=== PATIENT | female | born 1980 | race Caucasian/White ===

== ENCOUNTER → 2018-06-23 | Outpatient (CLI) | payer BC ==
--- NOTE | 2018-06-23 11:24 | MM ---
Reason for exam: screening (asymptomatic). Baseline mammogram. History: Patient is nulliparous. Family history of breast cancer in maternal grandmother and breast cancer in sister at age 44. Taking hormonal contraceptives for 18 years. Physical Findings: Nurse did not find any significant physical abnormalities on exam. MG 3D Screening Mammo W/Cad Bilateral CC and MLO view(s) were taken. The breast tissue is heterogeneously dense. This may lower the sensitivity of mammography. No suspicious abnormality. These results were verbally communicated with the patient and result sheet given to the patient on 06/23/18. ASSESSMENT: Negative, BI-RAD 1 RECOMMENDATION: Routine screening mammogram of both breasts in 1 year.
== END | disposition home or self-care (01) ==
LOC: RADMAMWWP 08:07
PROVIDERS: ATTEND Obstetrics & Gynecology
DX: Z12.31 Encounter for screening mammogram for malignant neoplasm of breast (principal)
CPT/HCPCS: 77063; 77067

== ENCOUNTER → 2019-07-12 | Outpatient (CLI) | payer BC ==
--- NOTE | 2019-07-12 12:13 | XR ---
EXAMINATION TYPE: XR hand complete bilateral DATE OF EXAM: 07/12/2019 CLINICAL HISTORY: Bilateral hand pain for months with no known injury TECHNIQUE: Frontal, lateral and oblique images of the bilateral hands were obtained. COMPARISON: None. FINDINGS: There is no acute fracture/dislocation evident in either hand. The joint spaces in the parisa ateral hands appear within normal limits. The overlying soft tissue appears unremarkable. Very minim al negative ulnar variance noted on the right. IMPRESSION: No acute fracture or dislocation in either hand nor significant radiographic sequela of a rthropathy at this time.
== END | disposition home or self-care (01) ==
LOC: RADXRMAIN 11:27
PROVIDERS: ATTEND Family Medicine
DX: M25.541 Pain in joints of right hand (principal); M25.542 Pain in joints of left hand